=== PATIENT | male | born 1940 | race Caucasian/White ===

== ENCOUNTER 2019-02-11 11:24 | Inpatient (IN) | payer MEDICARE ==
[~2019-02-11] VITALS: Ht 182.9 cm; Wt 65.0 kg
[2019-02-11] VITALS (8 sets, daily range): BP systolic 104–118; BP diastolic 56–67
[~2019-02-11 11:24] MED LIST: TRAMADOL HCL50 MG PO; VALTREX1 GM PO
[2019-02-11 12:01] LABS: HEMATOCRIT 42.9 % (39.0-50.0); IMMATURE GRANULOCYTES 1.2 % (0.0-5.0); MEAN CELL VOLUME 95.5 fL CALC (80.0-100.0); MEAN CORPUSCULAR HGB 32.7 pG CALC (26.0-32.0); MEAN CORPUSCULAR HGB CONC 34.3 g/L CALC (32.0-36.0); NEUT# 24.03 thou/uL (1.82-7.42); RED BLOOD COUNT 4.49 mill/uL (4.70-6.10); RED CELL DISTRI WIDTH 13.1 % (11.5-15.5)
[2019-02-11 12:03] LABS: HEMOGLOBIN 14.7 g/dl (14.0-18.0)
[2019-02-11] MEDS ORDERED: PREDNISONE10 MG PO (12:07)
[2019-02-11] MEDS ORDERED: DICYCLOMINE20 MG PO (12:09)
[2019-02-11 12:12] LABS: ALKALINE PHOSPHATASE 165 u/l (38-126); ANION GAP 17 (6-22 (CALC)); BILIRUBIN, TOTAL 1.1 mg/dL (0.0-1.4); BUN 34 mg/dL (8-23); BUN/CREATININE RATIO 45 (12-20 (CALC)); CARBON DIOXIDE 24 mmol/l (22-30); CHLORIDE 100 mmol/l (95-108); CREATININE 0.7 mg/dL (0.7-1.3); ETHYL ALCOHOL 0 mg/dl (0-30); GFR > 60 ML/MIN (>=60 (CALC)); GFR FOR AFR.AMER. > 60 ML/MIN (>=60 (CALC)); LIPASE 370 u/l (23-300); MAGNESIUM 2.1 mg/dL (1.6-2.3); POTASSIUM 3.5 mmol/l (3.5-5.1); SODIUM 137 mmol/l (137-146)
[2019-02-11 12:13] LABS: ALBUMIN 3.3 g/dL (3.2-5.0); SGOT/AST 312 u/l (19-48)
[2019-02-11 23:05] LABS: URINE BILIRUBIN - DIPSTICK NEGATIVE (NEGATIVE); URINE BLOOD DIPSTICK NEGATIVE (NEGATIVE); URINE COLOR YELLOW; URINE GLUCOSE - DIPSTICK 500 mg/dL (NEGATIVE); URINE KETONE NEGATIVE (NEGATIVE); URINE LEUK ESTERASE NEGATIVE (NEGATIVE); URINE NITRITE - DIPSTICK NEGATIVE (Negative); URINE PROTEIN - DIPSTICK NEGATIVE (NEG-TRACE); URINE SPECIFIC GRAVITY >=1.030
[2019-02-12] VITALS (12 sets, daily range): BP systolic 103–146; BP diastolic 52–71
[2019-02-12 05:18] LABS: HEMATOCRIT 37.7 % (39.0-50.0); HEMOGLOBIN 12.5 g/dl (14.0-18.0); MEAN CELL VOLUME 98.7 fL CALC (80.0-100.0); MEAN CORPUSCULAR HGB 32.7 pG CALC (26.0-32.0); MEAN CORPUSCULAR HGB CONC 33.2 g/L CALC (32.0-36.0); RED BLOOD COUNT 3.82 mill/uL (4.70-6.10); RED CELL DISTRI WIDTH 13.4 % (11.5-15.5)
[2019-02-12 05:38] LABS: ALKALINE PHOSPHATASE 101 u/l (38-126); ANION GAP 10 (6-22 (CALC)); BUN 18 mg/dL (8-23); BUN/CREATININE RATIO 40 (12-20 (CALC)); CARBON DIOXIDE 25 mmol/l (22-30); CHLORIDE 109 mmol/l (95-108); CREATININE 0.5 mg/dL (0.7-1.3); GFR > 60 ML/MIN (>=60 (CALC)); GFR FOR AFR.AMER. > 60 ML/MIN (>=60 (CALC)); POTASSIUM 3.4 mmol/l (3.5-5.1); SGOT/AST 131 u/l (19-48); SODIUM 140 mmol/l (137-146)
[2019-02-12 05:46] LABS: ALBUMIN 2.2 g/dL (3.2-5.0); BILIRUBIN, TOTAL 0.4 mg/dL (0.0-1.4); TOTAL PROTEIN 5.6 g/dL (6.3-8.2)
[2019-02-12 15:53] LABS: C. DIFFICILE TOXIN A&B NEGATIVE (NEGATIVE)
[2019-02-13] VITALS (13 sets, daily range): BP systolic 117–151; BP diastolic 64–84
[2019-02-13 05:32] LABS: HEMATOCRIT 35.6 % (39.0-50.0); HEMOGLOBIN 11.6 g/dl (14.0-18.0); MEAN CELL VOLUME 99.2 fL CALC (80.0-100.0); MEAN CORPUSCULAR HGB 32.3 pG CALC (26.0-32.0); MEAN CORPUSCULAR HGB CONC 32.6 g/L CALC (32.0-36.0); RED BLOOD COUNT 3.59 mill/uL (4.70-6.10); RED CELL DISTRI WIDTH 13.8 % (11.5-15.5)
[2019-02-13 05:39] LABS: ALKALINE PHOSPHATASE 97 u/l (38-126); ANION GAP 10 (6-22 (CALC)); BILIRUBIN, TOTAL 0.3 mg/dL (0.0-1.4); BUN 13 mg/dL (8-23); BUN/CREATININE RATIO 29 (12-20 (CALC)); CARBON DIOXIDE 23 mmol/l (22-30); CHLORIDE 112 mmol/l (95-108); CREATININE 0.5 mg/dL (0.7-1.3); GFR > 60 ML/MIN (>=60 (CALC)); GFR FOR AFR.AMER. > 60 ML/MIN (>=60 (CALC)); POTASSIUM 2.8 mmol/l (3.5-5.1); SGOT/AST 100 u/l (19-48); SODIUM 142 mmol/l (137-146); TOTAL PROTEIN 5.5 g/dL (6.3-8.2)
[2019-02-14] VITALS (11 sets, daily range): BP systolic 126–155; BP diastolic 62–85
[2019-02-14 05:10] LABS: HEMATOCRIT 36.7 % (39.0-50.0); HEMOGLOBIN 12.3 g/dl (14.0-18.0); MEAN CELL VOLUME 97.9 fL CALC (80.0-100.0); MEAN CORPUSCULAR HGB 32.8 pG CALC (26.0-32.0); MEAN CORPUSCULAR HGB CONC 33.5 g/L CALC (32.0-36.0); RED BLOOD COUNT 3.75 mill/uL (4.70-6.10)
[2019-02-14 05:29] LABS: ALBUMIN 2.1 g/dL (3.2-5.0); ALKALINE PHOSPHATASE 100 u/l (38-126); BILIRUBIN, TOTAL 0.4 mg/dL (0.0-1.4); BUN 7 mg/dL (8-23); BUN/CREATININE RATIO 18 (12-20 (CALC)); CARBON DIOXIDE 24 mmol/l (22-30); CHLORIDE 110 mmol/l (95-108); CREATININE 0.4 mg/dL (0.7-1.3); GFR > 60 ML/MIN (>=60 (CALC)); GFR FOR AFR.AMER. > 60 ML/MIN (>=60 (CALC)); SGOT/AST 78 u/l (19-48); SODIUM 141 mmol/l (137-146); TOTAL PROTEIN 5.8 g/dL (6.3-8.2)
[2019-02-14 05:51] LABS: ANION GAP 11 (6-22 (CALC)); POTASSIUM 3.7 mmol/l (3.5-5.1)
[2019-02-14 08:45] LABS: MAGNESIUM 1.4 mg/dL (1.6-2.3)
[2019-02-15] VITALS (7 sets, daily range): BP systolic 136–174; BP diastolic 65–101
[2019-02-15 06:16] LABS: HEMOGLOBIN 12.1 g/dl (14.0-18.0); MEAN CELL VOLUME 96.5 fL CALC (80.0-100.0); MEAN CORPUSCULAR HGB 32.4 pG CALC (26.0-32.0); MEAN CORPUSCULAR HGB CONC 33.6 g/L CALC (32.0-36.0); RED BLOOD COUNT 3.73 mill/uL (4.70-6.10); RED CELL DISTRI WIDTH 13.5 % (11.5-15.5)
[2019-02-15 06:40] LABS: ALBUMIN 2.2 g/dL (3.2-5.0); ALKALINE PHOSPHATASE 93 u/l (38-126); ANION GAP 9 (6-22 (CALC)); BUN 10 mg/dL (8-23); BUN/CREATININE RATIO 26 (12-20 (CALC)); CARBON DIOXIDE 27 mmol/l (22-30); CHLORIDE 106 mmol/l (95-108); CREATININE 0.4 mg/dL (0.7-1.3); GFR > 60 ML/MIN (>=60 (CALC)); GFR FOR AFR.AMER. > 60 ML/MIN (>=60 (CALC)); POTASSIUM 4.1 mmol/l (3.5-5.1); SGOT/AST 56 u/l (19-48); SODIUM 138 mmol/l (137-146); TOTAL PROTEIN 5.9 g/dL (6.3-8.2)
[2019-02-15 06:49] LABS: BILIRUBIN, TOTAL 0.6 mg/dL (0.0-1.4)
[2019-02-15] MEDS ORDERED: NEBULIZER COMPRESSOR (09:49)
[2019-02-15] MEDS ORDERED: ROCEPHIN1 G1 IJ (09:49)
[2019-02-15] MEDS ORDERED: PREDNISONE10 MG PO (09:49)
[2019-02-15] MEDS ORDERED: PROVENTIL0.083 % IN (09:49)
[2019-02-15] MEDS ORDERED: SPIRIVA RE2.5 MCG/AC IN (09:49)
== END 2019-02-15 13:35 | disposition home health service (06) | DRG 871 ==
LOC: ED 11:24 → ED-I 13:12 → ED 13:22 → ICU 13:23
PROVIDERS: Internal Medicine; Nurse Practitioner Family; ADMIT Internal Medicine; ATTEND Internal Medicine
PROC: 3E0234Z Introduction of Serum, Toxoid and Vaccine into Muscle, Percutaneous Approach (ICD-10-PCS; principal; 2019-02-13)
DX: A40.3 Sepsis due to Streptococcus pneumoniae (principal); J18.9 Pneumonia, unspecified organism; K85.20 Alcohol induced acute pancreatitis without necrosis or infection; J96.10 Chronic respiratory failure, unspecified whether with hypoxia or hypercapnia; J43.9 Emphysema, unspecified; F10.10 Alcohol abuse, uncomplicated; H91.90 Unspecified hearing loss, unspecified ear; E87.6 Hypokalemia; E83.42 Hypomagnesemia; Z91.19 Patient's noncompliance with other medical treatment and regimen; Z87.891 Personal history of nicotine dependence; Z99.81 Dependence on supplemental oxygen; Z23 Encounter for immunization
CPT/HCPCS: J3370; J3475; Q9967

== ENCOUNTER 2019-07-21 11:01 | Emergency (ER) | payer MEDICARE ==
[~2019-07-21 11:01] MED LIST changes: +DICYCLOMINE20 MG PO; +NEBULIZER COMPRESSOR; +PREDNISONE10 MG PO; +PROVENTIL0.083 % IN; +ROCEPHIN1 G1 IJ; +SPIRIVA RE2.5 MCG/AC IN
== END 2019-07-21 11:03 | disposition left against medical advice (07) ==
LOC: ED 11:01 → LWOBS 11:03
DX: Z53.21 Procedure and treatment not carried out due to patient leaving prior to being seen by health care provider (principal)

== ENCOUNTER 2020-05-30 20:45 | Emergency (ER) | payer MEDICARE ==
[~2020-05-30] VITALS: Ht 182.9 cm; Wt 72.0 kg
[2020-05-30 21:28] LABS: IMMATURE GRANULOCYTES 0.3 % (0.0-5.0); MEAN CELL VOLUME 97.2 fL CALC (80.0-100.0); MEAN CORPUSCULAR HGB 32.7 pG CALC (26.0-32.0); MEAN CORPUSCULAR HGB CONC 33.6 g/dL CAL (32.0-36.0); NEUT# 3.71 thou/uL (1.82-7.42); RED BLOOD COUNT 4.68 mill/uL (4.70-6.10); RED CELL DISTRI WIDTH 13.1 % (11.5-15.5)
[2020-05-30 21:30] LABS: HEMATOCRIT 45.5 % (39.0-50.0); HEMOGLOBIN 15.3 g/dl (14.0-18.0)
[2020-05-30 21:49] LABS: ALKALINE PHOSPHATASE 96 u/l (38-126); ANION GAP 11 (6-22 (CALC)); BILIRUBIN, TOTAL 0.6 mg/dL (0.0-1.4); BUN 5 mg/dL (8-23); BUN/CREATININE RATIO 6 (12-20 (CALC)); CARBON DIOXIDE 27 mmol/l (22-30); CHLORIDE 100 mmol/l (95-108); CREATININE 0.7 mg/dL (0.7-1.3); ETHYL ALCOHOL 254 mg/dl (0-30); GFR > 60 ML/MIN (>=60 (CALC)); GFR FOR AFR.AMER. > 60 ML/MIN (>=60 (CALC)); POTASSIUM 3.9 mmol/l (3.5-5.1); SGOT/AST 32 u/l (19-48); SODIUM 135 mmol/l (137-146)
[2020-05-30 21:50] LABS: ALBUMIN 4.1 g/dL (3.2-5.0); TOTAL PROTEIN 8.5 g/dL (6.3-8.2)
[2020-05-30 22:00] LABS: MYOGLOBIN 74 ng/mL (0 - 121)
[2020-05-31 00:04] VITALS: BP 118/65
== END 2020-05-31 00:29 | disposition home or self-care (01) ==
LOC: ED 20:45
PROVIDERS: Family Medicine
DX: S50.312A Abrasion of left elbow, initial encounter (principal); S50.02XA Contusion of left elbow, initial encounter; F10.129 Alcohol abuse with intoxication, unspecified; J44.9 Chronic obstructive pulmonary disease, unspecified; H91.90 Unspecified hearing loss, unspecified ear; V18.0XXA Pedal cycle driver injured in noncollision transport accident in nontraffic accident, initial encounter; Y93.55 Activity, bike riding; Y92.410 Unspecified street and highway as the place of occurrence of the external cause

== ENCOUNTER 2020-06-01 11:55 | Emergency (ER) | payer MEDICARE ==
[~2020-06-01] VITALS: Ht 182.9 cm; Wt 65.0 kg
[2020-06-01 13:33] VITALS: BP 138/86
[2020-06-01 15:17] LABS: HEMATOCRIT 46.8 % (39.0-50.0); HEMOGLOBIN 15.9 g/dl (14.0-18.0); IMMATURE GRANULOCYTES 0.4 % (0.0-5.0); MEAN CELL VOLUME 95.7 fL CALC (80.0-100.0); MEAN CORPUSCULAR HGB 32.5 pG CALC (26.0-32.0); NEUT# 9.35 thou/uL (1.82-7.42); RED BLOOD COUNT 4.89 mill/uL (4.70-6.10); RED CELL DISTRI WIDTH 12.7 % (11.5-15.5)
[2020-06-01 15:39] LABS: ALBUMIN 4.3 g/dL (3.2-5.0); ALKALINE PHOSPHATASE 113 u/l (38-126); BUN 12 mg/dL (8-23); BUN/CREATININE RATIO 16 (12-20 (CALC)); CARBON DIOXIDE 27 mmol/l (22-30); CHLORIDE 95 mmol/l (95-108); CREATININE 0.7 mg/dL (0.7-1.3); ETHYL ALCOHOL 0 mg/dl (0-30); GFR > 60 ML/MIN (>=60 (CALC)); GFR FOR AFR.AMER. > 60 ML/MIN (>=60 (CALC)); SGOT/AST 27 u/l (19-48); SODIUM 130 mmol/l (137-146)
[2020-06-01 15:40] LABS: ANION GAP 14 (6-22 (CALC)); BILIRUBIN, TOTAL 1.2 mg/dL (0.0-1.4); POTASSIUM 5.5 mmol/l (3.5-5.1)
== END 2020-06-01 19:17 | disposition short-term general hospital (02) ==
LOC: ED 11:55 → ED-I 13:39 → ED 19:17
DX: S06.300A Unspecified focal traumatic brain injury without loss of consciousness, initial encounter (principal); J44.9 Chronic obstructive pulmonary disease, unspecified; H91.90 Unspecified hearing loss, unspecified ear; S70.02XA Contusion of left hip, initial encounter; S30.1XXA Contusion of abdominal wall, initial encounter; S00.11XA Contusion of right eyelid and periocular area, initial encounter; V18.0XXA Pedal cycle driver injured in noncollision transport accident in nontraffic accident, initial encounter; Y93.55 Activity, bike riding
CPT/HCPCS: Q9967

== ENCOUNTER 2023-03-23 17:12 | Inpatient (IN) | payer MEDICARE ==
[2023-03-23] VITALS (56 sets, daily range): BP systolic 51–117; BP diastolic 16–77
[~2023-03-23] VITALS: Ht 182.9 cm; Wt 66.3 kg
[2023-03-23 18:02] LABS: BASO% 0.1 % (0-3); EOS% 0.1 % (0-8); HEMATOCRIT 45.1 % (39.0-50.0); HEMOGLOBIN 15.4 g/dl (14.0-18.0); IMMATURE GRANULOCYTES 2.9 % (0.0-5.0); LYMPH% 3.4 % (15-41); MEAN CELL VOLUME 96.2 fL CALC (80.0-100.0); MEAN CORPUSCULAR HGB 32.8 pG CALC (26.0-32.0); MEAN CORPUSCULAR HGB CONC 34.1 g/dL CAL (32.0-36.0); MONO% 1.9 % (2-13); NEUT# 13.1 thou/uL (1.82-7.42); NEUT% 91.6 % (42-76); RED BLOOD COUNT 4.69 mill/uL (4.70-6.10); RED CELL DISTRI WIDTH 12.6 % (11.5-15.5)
[2023-03-23 18:11] LABS: MAGNESIUM 1.5 mg/dL (1.6-2.3)
[2023-03-23 18:19] LABS: ALBUMIN 3.2 g/dL (3.2-5.0); BILIRUBIN, TOTAL 5.3 mg/dL (0.2-1.3); POTASSIUM 2.9 mmol/l (3.5-5.1); TOTAL PROTEIN 6.8 g/dL (6.3-8.2)
[2023-03-23 18:27] LABS: INTERNATIONAL NORMALIZED RATIO 1.8 RATIO (0.7-1.3); PROTHROMBIN TIME 16.7 SECONDS (9.0-12.5)
[2023-03-23 18:51] LABS: URINE BLOOD DIPSTICK Trace-lysed (NEGATIVE); URINE GLUCOSE - DIPSTICK 100 mg/dL (NEGATIVE); URINE KETONE 15 mg/dL (NEGATIVE); URINE LEUK ESTERASE Negative (NEGATIVE); URINE PH 5.5 (4.5-8.0); URINE PROTEIN - DIPSTICK 100 mg/dL (NEG-TRACE); URINE SPECIFIC GRAVITY 1.015
[2023-03-23 18:53] LABS: URINE COLOR Amber; URINE NITRITE - DIPSTICK Positive (Negative)
[2023-03-23 18:54] LABS: URINE BACTERIA RARE hpf; URINE RENAL EPITHELIAL CELLS FEW hpf
[2023-03-24] VITALS (86 sets, daily range): BP systolic 66–139; BP diastolic 36–100
[2023-03-24 06:41] LABS: HEMATOCRIT 46.2 % (39.0-50.0); HEMOGLOBIN 15.8 g/dl (14.0-18.0); MEAN CELL VOLUME 97.1 fL CALC (80.0-100.0); MEAN CORPUSCULAR HGB 33.2 pG CALC (26.0-32.0); MEAN CORPUSCULAR HGB CONC 34.2 g/dL CAL (32.0-36.0); RED BLOOD COUNT 4.76 mill/uL (4.70-6.10); RED CELL DISTRI WIDTH 13.1 % (11.5-15.5)
[2023-03-24 06:59] LABS: ALKALINE PHOSPHATASE 86 u/l (38-126); BILIRUBIN, TOTAL 4.5 mg/dL (0.2-1.3); BUN 32 mg/dL (8-23); BUN/CREATININE RATIO 23 (12-20 (CALC)); CHLORIDE 106 mmol/l (95-108); CREATININE 1.4 mg/dL (0.7-1.3); GFR FOR AFR.AMER. 59 ML/MIN (>=60 (CALC)); GFR OTHER RACES 48 ML/MIN (>=60 (CALC)); SODIUM 140 mmol/l (137-146); TOTAL PROTEIN 6.6 g/dL (6.3-8.2)
[2023-03-24 07:00] LABS: ANION GAP 16 (6-22 (CALC)); CARBON DIOXIDE 22 mmol/l (22-30); MAGNESIUM 2.1 mg/dL (1.6-2.3); POTASSIUM 3.9 mmol/l (3.5-5.1); SGOT/AST > 1500 u/l (19-48)
[2023-03-24 10:34] LABS: ALKALINE PHOSPHATASE 90 u/l (38-126); BILIRUBIN, TOTAL 4.5 mg/dL (0.2-1.3); TOTAL PROTEIN 6.7 g/dL (6.3-8.2)
[2023-03-24 10:53] LABS: SGOT/AST 1487 u/l (19-48)
[2023-03-24 11:08] LABS: DIRECT BILIRUBIN 2.2 mg/dl (0.0-0.3)
== END 2023-03-24 22:29 | disposition short-term general hospital (02) | DRG 871 ==
LOC: ED 17:12 → ED-I 20:20 → ED 20:39 → ICU 20:40
PROVIDERS: Family Medicine; ADMIT Student in an Organized Health Care Education/Training Program; ATTEND Student in an Organized Health Care Education/Training Program
PROC: 0T9B70Z Drainage of Bladder with Drainage Device, Via Natural or Artificial Opening (ICD-10-PCS; principal; 2023-03-23)
DX: A41.9 Sepsis, unspecified organism (principal); J18.9 Pneumonia, unspecified organism; R65.21 Severe sepsis with septic shock; J44.0 Chronic obstructive pulmonary disease with (acute) lower respiratory infection; K83.09 Other cholangitis; E87.20 Acidosis, unspecified; K80.11 Calculus of gallbladder with chronic cholecystitis with obstruction; E87.6 Hypokalemia; F10.10 Alcohol abuse, uncomplicated; I95.9 Hypotension, unspecified; H91.90 Unspecified hearing loss, unspecified ear; Z99.81 Dependence on supplemental oxygen; Z86.73 Personal history of transient ischemic attack (TIA), and cerebral infarction without residual deficits; Z87.891 Personal history of nicotine dependence; Z20.822 Contact with and (suspected) exposure to COVID-19
CPT/HCPCS: J3475